=== PATIENT | male | born 1980 | race Caucasian/White ===

== ENCOUNTER 2023-08-15 18:52 | Inpatient (IN) | payer MEDICAID, OTHER ==
[~2023-08-15] VITALS: Ht 177.8 cm; Wt 83.8 kg
[2023-08-15 20:09] LABS: Basophils # (auto) 0 10 ^3/uL (0-0.2); Eosinophils # (auto) 0.1 10 ^3/uL (0-0.8); Hemoglobin 13.5 g/dL (13.5-17.5); Monocytes # (auto) 0.6 10 ^3/uL (0-1.3); Neutrophils # (auto) 5.4 10 ^3/uL (1.6-8.6); Nucleated Red Blood Cells % 0.1 %
[2023-08-15 20:10] LABS: Basophils % (auto) 0.5 % (0.0-2.0); Eosinophils % (auto) 1.4 % (0.0-7.0); Hematocrit 41.4 % (41.0-53.0); Lymphocytes # (auto) 1.5 10 ^3/uL (0.4-5.4); Lymphocytes % (auto) 19.8 % (10.0-50.0); Mean Corpuscular Hemoglobin 27.2 pg (28.0-32.0); Mean Corpuscular Hgb Conc. 32.5 g/dL (32.0-36.0); Mean Corpuscular Volume 83.5 fL (80.0-100.0); Monocytes % (auto) 8.1 % (0.0-12.0); Neutrophils % (auto) 70.2 % (37.0-80.0); Red Blood Cells 4.96 10^6/uL (4.5-5.90); Red Cell Distribution Width 14.3 % (11.8-14.3); White Blood Cell 7.7 10^3/uL (4.4-10.8)
[2023-08-15 20:29] LABS: Alanine Aminotransferase 28 U/L (7-40); Albumin 4.6 g/dL (3.2-4.8); Alkaline Phosphatase 73 U/L (46-116); Anion Gap 6 (5-15); Aspartate Aminotransferase 12 U/L (13-40); BUN/Creatinine Ratio 16.3 (10.0-20.0); Bilirubin, Total 0.3 mg/dL (0.2-1.0); Blood Urea Nitrogen 13 mg/dL (9-23); Calcium 9.9 mg/dL (8.5-10.1); Carbon Dioxide 26 mmol/L (20-30); Chloride 108 mmol/L (98-107); Glucose 117 mg/dL (74-106); Potassium 3.7 mmol/L (3.5-5.1); Sodium 140 mmol/L (136-145); Total Protein 7.1 g/dL (5.7-8.2)
[2023-08-15 20:38] LABS: CRP High Sensitivity 1.45 mg/dL (<1.0); Prothrombin Time 51.2 sec (9.3-11.8)
[2023-08-15 21:01] LABS: Erythrocyte Sedimentation Rate 23 mm/hr (0-20)
[2023-08-15 21:02] LABS: INR 5.48 (0.9-1.15)
[2023-08-15 21:03] LABS: Partial Thromboplastin Time 70.7 SEC (24.5-34.5)
[2023-08-15] MEDS: IOHEXOL 350 MG/ML 100ML IJ ONE (21:32)
[2023-08-15] MEDS: SODIUM CHLORIDE 0.9% 1,000 ML IV ONE (21:51)
[2023-08-15] MEDS: CLINDAMYCIN 900MG IV 50 ML IV ONE (21:51)
[2023-08-15] MEDS ORDERED: MORPHINE SULFATE INJ 2 MG/ml SYRG IV PRN (23:00)
[2023-08-15] MEDS ORDERED: DOCUSATE SOD 100 MG CAP PO PRN (23:00)
[2023-08-15] MEDS ORDERED: ACETAMINOPHEN 325 MG TAB PO PRN (23:00)
[2023-08-15] MEDS ORDERED: ONDANSETRON HCL 4 MG/2 ML VIAL IV PRN (23:00)
[2023-08-15] MEDS ORDERED: NITROGLYCERIN 0.4 MG SL TAB SL PRN (23:00)
[2023-08-15] MEDS: HYDROcodone-ACET 5/325MG TAB PO PRN (23:47)
[2023-08-16] VITALS (8 sets, daily range): BP systolic 113–135; BP diastolic 69–80; PULSE 61–87; RESP 14–18; TEMP 97.5–98.3; O2SAT 94–100
[2023-08-16] MEDS ORDERED: CLOP75TA70 PO (02:06)
[2023-08-16] MEDS ORDERED: WARF-66 PO (02:06)
[2023-08-16] MEDS ORDERED: HYDR4TAB3 PO (02:06)
[2023-08-16] MEDS ORDERED: GABA-1251 PO (02:06)
[2023-08-16] MEDS: CLINDAMYCIN 300MG IV 50 ML IV SCH (05:14)
[2023-08-16] MEDS: SODIUM CHLOR 0.9% PF (SALINE LOCK) 10ML VIAL/SYR IV SCH (05:21)
[2023-08-16 05:38] LABS: Basophils # (auto) 0 10 ^3/uL (0-0.2); Basophils % (auto) 0.6 % (0.0-2.0); Eosinophils # (auto) 0.1 10 ^3/uL (0-0.8); Eosinophils % (auto) 2.5 % (0.0-7.0); Hematocrit 36.2 % (41.0-53.0); Hemoglobin 11.9 g/dL (13.5-17.5); Lymphocytes # (auto) 1.5 10 ^3/uL (0.4-5.4); Mean Corpuscular Hemoglobin 27.5 pg (28.0-32.0); Mean Corpuscular Hgb Conc. 32.8 g/dL (32.0-36.0); Mean Corpuscular Volume 84.1 fL (80.0-100.0); Monocytes # (auto) 0.6 10 ^3/uL (0-1.3); Monocytes % (auto) 9.5 % (0.0-12.0); Neutrophils # (auto) 3.6 10 ^3/uL (1.6-8.6); Neutrophils % (auto) 61.4 % (37.0-80.0); Nucleated Red Blood Cells % 0.2 %; Red Blood Cells 4.31 10^6/uL (4.5-5.90); Red Cell Distribution Width 14.2 % (11.8-14.3); White Blood Cell 5.8 10^3/uL (4.4-10.8)
[2023-08-16 05:55] LABS: Alanine Aminotransferase 21 U/L (7-40); Alkaline Phosphatase 65 U/L (46-116); Calcium 9.5 mg/dL (8.7-10.4); Chloride 111 mmol/L (98-107)
[2023-08-16 05:56] LABS: Anion Gap 5 (5-15); BUN/Creatinine Ratio 21.1 (10.0-20.0); Blood Urea Nitrogen 16 mg/dL (9-23); Carbon Dioxide 27 mmol/L (20-30); Glucose 127 mg/dL (74-106); Potassium 3.7 mmol/L (3.5-5.1); Sodium 143 mmol/L (136-145)
[2023-08-16 05:57] LABS: Albumin 3.7 g/dL (3.2-4.8); Aspartate Aminotransferase 12 U/L (13-40); Bilirubin, Total 0.2 mg/dL (0.2-1.0); Total Protein 5.8 g/dL (5.7-8.2)
[2023-08-16] MEDS: MORPHINE SULFATE INJ 2 MG/ml SYRG IV PRN (10:56)
[2023-08-16] MEDS: levoFLOXacin 500MG 100 ML IV ONE (18:25)
[2023-08-16] MEDS: HYDROmorphone HCL 2 MG TAB PO PRN (18:32)
[2023-08-16 19:38] LABS: INR 3.1 (0.9-1.15); Prothrombin Time 30.2 sec (9.3-11.8)
[2023-08-16 22:56] LABS: Urine Bacteria None Seen /hpf (None Seen)
[2023-08-16 23:11] LABS: Urine Blood 1+ /uL (Negative); Urine Clarity Clear (Clear); Urine Color Light-Yellow (Yellow); Urine Mucus FEW (None Seen); Urine Protein, UAD Negative (Negative); Urine Specific Gravity 1.025 (1.001-1.035); Urine Urobilinogen Normal (Negative); Urine WBC 2 /hpf (0 - 3); Urine pH 5.5 (5.0-9.0)
[2023-08-16 23:20] LABS: Amphetamine Screen, Urine Pos (NEGATIVE); Barbiturate Scree,Urine Neg (NEGATIVE); Benzodiazephine Screen, Urine Neg (NEGATIVE); Cannabinoid Screen, Urine Pos (NEGATIVE); Cocaine Screen, Urine Neg (NEGATIVE); Opiate Scree,Urine Pos (NEGATIVE); Phencyclidine Screen, Urine Neg (NEGATIVE)
[2023-08-16] MEDS: GABAPENTIN 400 MG CAP PO SCH (23:24)
[2023-08-17 05:00] VITALS: BP 130/84; PULSE 61; RESP 18; TEMP 98.6; O2SAT 97
[2023-08-17 05:57] LABS: Basophils # (auto) 0.1 10 ^3/uL (0-0.2); Basophils % (auto) 0.9 % (0.0-2.0); Eosinophils # (auto) 0.2 10 ^3/uL (0-0.8); Eosinophils % (auto) 2.8 % (0.0-7.0); Hemoglobin 13.7 g/dL (13.5-17.5); Lymphocytes # (auto) 1.3 10 ^3/uL (0.4-5.4); Lymphocytes % (auto) 18.4 % (10.0-50.0); Mean Corpuscular Hemoglobin 27.3 pg (28.0-32.0); Mean Corpuscular Hgb Conc. 32.7 g/dL (32.0-36.0); Mean Corpuscular Volume 83.5 fL (80.0-100.0); Monocytes # (auto) 0.5 10 ^3/uL (0-1.3); Monocytes % (auto) 6.9 % (0.0-12.0); Red Blood Cells 5.02 10^6/uL (4.5-5.90); Red Cell Distribution Width 13.7 % (11.8-14.3)
[2023-08-17 06:23] LABS: INR 2.06 (0.9-1.15); Partial Thromboplastin Time 39.1 SEC (24.5-34.5); Prothrombin Time 20.7 sec (9.3-11.8)
[2023-08-17 08:00] VITALS: PULSE 73; RESP 17; O2SAT 96
[2023-08-17 08:25] VITALS: BP 133/85; PULSE 73; RESP 17; TEMP 98.1; O2SAT 96
[2023-08-17] MEDS: levoFLOXacin 500MG 100 ML IV SCH (08:47)
[2023-08-17] MEDS: CLOPIDOGREL BISULFATE 75 MG TAB PO SCH (08:48)
[2023-08-17 12:43] VITALS: BP 142/98; PULSE 91; RESP 18; TEMP 98.2; O2SAT 100
[2023-08-17] MEDS ORDERED: LEVO500T91 PO (15:49)
[2023-08-17 16:23] VITALS: BP 142/98; PULSE 91; RESP 18; TEMP 98.2; O2SAT 100
[2023-08-17] MEDS ORDERED: WARFARIN SODIUM 5 MG TAB PO ONE (17:00)
== END 2023-08-17 16:49 | disposition home or self-care (01) | DRG 383 ==
LOC: ER 18:52 → TELE 22:57 → TELE-WESTW 23:58 → WEST WING 08-16 16:17
PROVIDERS: ADMIT Internal Medicine; ATTEND Pediatrics Pediatric Pulmonology
DX: L03.116 Cellulitis of left lower limb (principal); D68.9 Coagulation defect, unspecified; Z89.611 Acquired absence of right leg above knee; G62.9 Polyneuropathy, unspecified; I73.9 Peripheral vascular disease, unspecified; I69.351 Hemiplegia and hemiparesis following cerebral infarction affecting right dominant side; Z87.891 Personal history of nicotine dependence; Z71.6 Tobacco abuse counseling
CPT/HCPCS: 36415; 73701; 80053; 80307; 81001; 83605; 83880; 85025; 85610; 85652; 85730; 86141; 87040; 93005; 93926; 93971; G0378; J1956; J3490